=== PATIENT | female | born 1955 ===

== ENCOUNTER 2017-08-20 11:02 | Day surgery (SDC) | payer OTHER ==
[2017-08-20] MEDS ORDERED: Midazolam 2 MG/2 ML VIAL ONE (11:26)
[2017-08-20] MEDS ORDERED: DiphenhydrAMINE 50 mg/ml Inj ONE ×2 (11:37→11:54)
[2017-08-20 14:21] VITALS: BMI 26.2
--- NOTE | 2017-08-20 15:50 | PN ---
DATE: SUBJECTIVE: The case was discussed. The findings of three-vessel disease and ischemic cardiomyopathy were discussed with the patient's son and daughter. The patient was offered to be transferred directly to [facility] to be evaluated by the cardiothoracic surgeon Dr. Petty, whom I discussed with him; however, the son declined this option and wanted to go to [place] first. The case was discussed earlier with the primary nail expert, Dr. Javier. Based on the family request, the patient will be transferred back to telemetry unit until further decision for the much needed coronary artery bypass surgery is made by the family. The patient will be placed back on medications and will be started Mucomyst and IV hydration. Please see the copy of the cardiac catheterization will accompany the patient on transfer back to [place]. Lazaro London MD
[2017-08-20] MEDS ORDERED: Sodium Chloride 0.9% 500 ML IV SCH (16:15)
--- NOTE | 2017-08-20 23:40 | CARDCATH ---
PROCEDURE DATE: INDICATIONS: The patient is 61 years old female who has history of hypertension, diabetes mellitus, chronic renal insufficiency, hepatitis C, history of ischemic cardiomyopathy as per recent echo study. The patient was admitted to [facility] for suspicion of CHF and was found to have large left pleural effusion, underwent thoracocentesis and cardiac catheterization was recommended. The procedure and its risks including risk of bleeding, stroke, heart attack, cardiac arrest as well as a major allergic reaction were thoroughly explained to the patient and her and her daughter. The patient understood, agreed, and signed written consent. The patient was premedicated with Solu-Medrol, Benadryl, and Pepcid starting 3 days prior to the procedure. DESCRIPTION OF PROCEDURE: Left and right coronary angiography was performed with 6-Egyptian JL4 and JR4 diagnostic catheters. Left ventriculogram was performed with a 6-Egyptian pigtail catheter. The patient tolerated the procedure well without any complications. ANGIOGRAPHIC FINDINGS: Selective injection of the left coronary artery revealed left main to have a distal 20% to 30% distal narrowing. Left main bifurcated into medium-sized LAD and medium sized circumflex artery. LAD had 90% proximal stenosis followed by 90% stenosis in the anteromedial portion. The LAD gave multiple diagonal and septal perforators all were of same caliber and almost all had significant proximal and ostial disease. The LAD itself had critical disease in its very distal segment and it maybe distally occluded in the posterior descending artery segment. The circumflex artery gave 3 major obtuse marginal branches. Each branch had critical 90% stenosis proximally and the circumflex artery itself had severe disease about 90% distally. Selective injection of the right coronary artery revealed a medium sized codominant vessel that had 70% proximal stenosis followed by 70% distal stenosis before its bifurcation to posterior descending artery as well as posterolateral distal branch. Both branches had 70% proximal stenoses. Left ventriculogram performed in MATHEW projection which revealed akinetic inferobasal segment, ejection fraction was estimated at 25%. CONCLUSION: Significant 3-vessel disease and ischemic cardiomyopathy. RECOMMENDATION: Coronary artery bypass surgery is recommended and would be discussed with the referring mixer runner, Dr. Javier, as well as the cardiothoracic surgeon. Lazaro London MD
== END 2017-08-20 18:40 | disposition hospice, home (50) ==
LOC: C.CATHLAB 11:02
PROVIDERS: ATTEND Specialist
DX: I25.5 Ischemic cardiomyopathy (principal); I10 Essential (primary) hypertension; E11.9 Type 2 diabetes mellitus without complications; B18.2 Chronic viral hepatitis C
CPT/HCPCS: 82948; 93452; 99152; 99153; C1769; C1887; C1893; J1200; J1644; J2930; J7040; Q9967